=== PATIENT | male | born 1980 | race Two or more races ===

== ENCOUNTER → 2022-12-14 13:26 | Outpatient (BNVA) | payer OTHER, SELFPAY | PROVIDERS: PCP Internal Medicine; Visit Provider Physician Assistant Surgical | DX: Z13.89 Encounter for screening for other disorder (principal) ==

== ENCOUNTER → 2022-12-23 12:41 | Outpatient (BNVA) | payer OTHER, SELFPAY | PROVIDERS: PCP Internal Medicine; Visit Provider Physician Assistant | DX: E66.01 Morbid (severe) obesity due to excess calories (principal) ==

== ENCOUNTER 2022-12-24 14:44 | Outpatient (REF) | payer OTHER, SELFPAY ==
[2022-12-25 15:19] LABS: H Pylori Breath Test Negative (Negative)
== END 2022-12-24 14:45 | disposition home or self-care (01) ==
LOC: HO.LNP 14:44
PROVIDERS: Visit Provider Physician Assistant
DX: Z01.818 Encounter for other preprocedural examination (principal); E66.01 Morbid (severe) obesity due to excess calories
CPT/HCPCS: 83013

== ENCOUNTER → 2023-03-10 08:15 | Outpatient (BNVA) | payer OTHER, SELFPAY | PROVIDERS: PCP Internal Medicine; Referring Provider Internal Medicine; Visit Provider Internal Medicine | DX: R07.9 Chest pain, unspecified (principal); R06.02 Shortness of breath; I10 Essential (primary) hypertension | CPT/HCPCS: 93005 ==

== ENCOUNTER → 2023-03-29 07:41 | Outpatient (REF) | payer OTHER, SELFPAY ==
--- NOTE | 2023-03-29 07:44 | CA_ITS ---
Transthoracic Echocardiogram Patient (Last, First, Middle): Theodore Eldridge, Gender: Male Date of : 1980 Age: 42 Procedure Date: 03/29/2023 Procedure Type: Transthoracic Echocardiogram Location: OP Height: 180.34 cm Weight: 170.55 kg BSA: 2.76 m2 Heart Rate: 67 bpm BP: 134 / 92 mmHg Cash Grain Grower: MARTHA Referring MD: Brian Sanders MD Barbed Wire Machine Operator: Norris Villagomez MD Symptoms: R07.9 - Chest pain, unspecified Study Quality: Adequate with contrast ECG Rhythm: Sinus Conclusions: - Essentially normal study Findings Procedure Information Contrast agent, definity, is being given per protocol without apparent complications. Left Ventricle Normal left ventricular size, thickness, and systolic function. The visually estimated ejection fraction is between 55-60%. Spectral Doppler is indicative of a normal filling pattern. Right Ventricle Normal right ventricular cavity size and systolic function. Atria The left atrium is normal in size. Interatrial shunt cannot be excluded. The right atrium was not well visualized. Aortic Valve The aortic valve structure and function is likely normal. There is no aortic valve stenosis. There is no aortic valve regurgitation. Mitral Valve Normal mitral valve structure and function. There is trace mitral valve regurgitation. There is no mitral valve stenosis. Tricuspid Valve Likely normal tricuspid valve structure and function. Tricuspid regurgitation envelope is inadequate for calculation of right ventricular systolic pressure. Normal right atrial pressure. Great Vessels All visible segments of the aorta are normal in size. The pulmonary artery was not well visualized. Venous The inferior vena cava is normal in size and collapses greater than 50% with inspiration. Pericardium/Pleural There is no evidence of pericardial effusion. Prior Study Comparison No prior study available for comparison. Measurements 2D Linear Measurements IVSd: 1.08 0.6-0.9/0.6-1.0 cm LVIDd: 4.52 3.9-5.3/4.2-5.9 cm LVIDd Index: 1.64 2.4-3.2/2.2-3.1 cm/m2 LVIDs: 3.16 2.0-3.6 cm LVPWd: 1.04 0.7-1.1 cm LA Diam: 3.60 2.7-3.8/3.0-4.0 cm LAIDs Index: 1.30 1.5-2.3 cm/m2 LV Mass: 208.43 67-162/88-224 g LV Mass Index: 75.52 43-95/49-115 g/m2 LVOT Diam: 2.30 3.0+(-)1.3 cm 2D Systolic Function EF 4C: 60.90 >55% EF 2C: 53.90 >55% EF BiP: 57.10 >55% Mitral Valve MV Pk E: 0.88 MV PK A: 0.72 MV Decel Time: 232.00 E/A: 1.20 E'Lateral: 12.00 E'Medial: 9.36 E/E' Med: 9.40 E/E' Lat: 7.30 PHT: 68.00 MVA PHT: 3.24 Decel Kershaw: 3.78 Aortic Valve AoV Pk Magen: 1.36 AoV Mn Magen: 1.00 AoV VTI: 0.31 AoV Pk Grad: 7.00 Aov Mn Grad: 4.00 LILIA Cont.VTI: 3.46 LVOT LVOT Pk Magen: 1.08 LVOT Mn Magen: 0.74 LVOT VTI: 0.26 LVOT Pk Grad: 5.00 LVOT Mn Grad: 2.00 LVOT Diam: 2.30 LVOT Area: 4.15 Diastolic Function MV Pk E: 0.88 MV Pk A: 0.72 E/A: 1.20 E'Medial: 9.36 E/E' Med: 9.40 E' Laterial: 12.00 E/E' Lat: 7.30 Right Ventricle TAPSE (mm): 19.70 TVS' Magen: 13.30 Great Vessels Aorta Sinus of Valsalva: 3.08 2.0-3.[address] [place]: 2.61 1.7-3.4 cm Ao Asc: 3.00 2.1-3.4 cm Updated in Other Vendor System with Status of Final Norris Villagomez MD electronically signed on 03/30/2023 4:46:28 PM with status of Final
--- NOTE | 2023-03-29 07:44 | ECG_ITS ---
Test Reason : mor obs Blood Pressure : / mmHG Vent. Rate : 067 BPM Atrial Rate : 067 BPM P-R Int : 150 ms QRS Dur : 084 ms QT Int : 402 ms P-R-T Axes : 039 042 038 degrees QTc Int : 424 ms Normal sinus rhythm Normal ECG No previous ECGs available Referred By: Ainsley Dinero Electronically Signed By:KENISHA SALAZAR MD
== END ==
LOC: HO.CARD 07:41
PROVIDERS: PCP Internal Medicine; Visit Provider Internal Medicine
DX: Z01.818 Encounter for other preprocedural examination (principal); R07.9 Chest pain, unspecified; E66.01 Morbid (severe) obesity due to excess calories
CPT/HCPCS: 93005; 93306; Q9957

== ENCOUNTER → 2023-05-26 08:59 | Outpatient (BNVA) | payer OTHER, SELFPAY | PROVIDERS: PCP Internal Medicine; Referring Provider Internal Medicine; Visit Provider Internal Medicine ==